=== PATIENT | male | born 1995 | race African-American/Black ===

== ENCOUNTER 2018-03-18 00:33 | Inpatient (IN) | payer OTHER ==
[~2018-03-18] VITALS: Ht 175.3 cm; Wt 102.1 kg
[2018-03-18 03:10] LABS: Basophils # (auto) 0.1 uL; Eosinophils # (auto) 0.1 uL; Lymphocytes # (auto) 1.6 uL; Mean Corpuscular Volume 67.5 fL (80.0-100.0); Nucleated Red Blood Cells % 0.1 %; Red Cell Distribution Width 19.8 % (11.8-14.3)
[2018-03-18 03:12] LABS: Basophils % (auto) 1.5 % (0.0-2.0); Eosinophils % (auto) 1.1 % (0.0-7.0); Hematocrit 31.2 % (41.0-53.0); Hemoglobin 10.1 g/dL (13.5-17.5); Lymphocytes % (auto) 22.1 % (10.0-50.0); Mean Corpuscular Hemoglobin 21.8 pg (28.0-32.0); Mean Corpuscular Hgb Conc. 32.3 g/dL (32.0-36.0); Monocytes # (auto) 0.7 uL; Monocytes % (auto) 9.4 % (0.0-12.0); Neutrophils # (auto) 4.8 uL; Neutrophils % (auto) 65.9 % (37.0-80.0); Platelet Count (auto) 432 10^3/uL (140-450); Red Blood Cells 4.62 10^6/uL (4.5-5.90); White Blood Cell 7.2 10^3/uL (4.4-10.8)
[2018-03-18 03:17] LABS: INR 0.94 (0.9-1.15); Partial Thromboplastin Time 25.9 sec (22.64-33.71); Prothrombin Time 10.2 sec (9.37-12.3)
[2018-03-18 03:33] LABS: Alanine Aminotransferase 37 U/L (16-61); Alkaline Phosphatase 74 U/L (45-117); Anion Gap 10 (5-15); Aspartate Aminotransferase 13 U/L (15-37); BUN/Creatinine Ratio 21.5; Bilirubin, Total 0.4 mg/dL (0.2-1.0); Blood Urea Nitrogen 17 mg/dL (7-18); Calcium 8.5 mg/dL (8.5-10.1); Carbon Dioxide 25 mmol/L (21-32); Chloride 103 mmol/L (98-107); GFR African American 159 mL/min; GFR Non-African American 132 mL/min; Glucose 90 mg/dL (74-106); Potassium 3.6 mmol/L (3.5-5.1); Sodium 138 mmol/L (136-145); Total Protein 7.3 g/dL (6.4-8.2)
[2018-03-18 03:34] LABS: Albumin 3.4 g/dL (3.4-5.0); Amylase 49 U/L (25-115); Lipase 75 U/L (73-393); Magnesium 2.2 mg/dL (1.6-2.6)
[2018-03-18] MEDS ORDERED: MORPHINE SULFATE 4 MG/ML SYR/VIAL IV ONE (05:45)
[2018-03-18] MEDS ORDERED: HYDROcodone-ACET 5/325MG TAB PO PRN (06:30)
[2018-03-18] MEDS ORDERED: MORPHINE SULFATE 4 MG/ML SYR/VIAL IV PRN (06:30)
[2018-03-18] MEDS ORDERED: ACETAMINOPHEN 500 MG TAB PO PRN (06:30)
[2018-03-18] MEDS ORDERED: DEXTROSE (50%) 50ML SYRG IV PRN (08:00)
[2018-03-18 09:15] LABS: Urine Bacteria NONE SEEN /hpf (None Seen); Urine Blood Negative /uL (Negative); Urine Specific Gravity 1.006 (1.001-1.035); Urine WBC <1 /hpf (0 - 3)
[2018-03-18 09:24] LABS: Alcohol, Urine < 3.0 mg/dL (0-5); Amphetamine Screen, Urine NEGATIVE (NEGATIVE); Barbiturate Scree,Urine NEGATIVE (NEGATIVE); Benzodiazephine Screen, Urine POSITIVE (NEGATIVE); Cannabinoid Screen, Urine NEGATIVE (NEGATIVE); Cocaine Screen, Urine NEGATIVE (NEGATIVE); Opiate Scree,Urine POSITIVE (NEGATIVE); Phencyclidine Screen, Urine NEGATIVE (NEGATIVE)
[2018-03-18] MEDS ORDERED: ASPirin-EC 325mg tab PO SCH (10:00)
[2018-03-18] MEDS: PANTOPRAZOLE 40 MG/10 ML VIAL IV SCH ×2 (10:46→23:32)
[2018-03-18] MEDS: CLOPIDOGREL BISULFATE 75 MG TAB PO SCH (10:47)
[2018-03-18] MEDS: CARVEDILOL 3.125 MG TAB PO SCH ×2 (10:47→23:33)
[2018-03-18] MEDS ORDERED: CLOP75TA41 PO (10:58)
[2018-03-18] MEDS ORDERED: PRED1PAK9 PO (10:59)
[2018-03-18] MEDS ORDERED: COLC1CAP PO (10:59)
[2018-03-18] MEDS: MORPHINE SULFATE 4 MG/ML SYR/VIAL IV PRN ×4 (10:59→23:35)
[2018-03-18 11:02] VITALS: BP 121/75
[2018-03-18] MEDS: CYCLOBENZAPRINE HCL 10 MG TAB PO PRN (11:43)
[2018-03-18] MEDS: ACCU-CHEK COMFORT CURVE STRIP VI SCH ×3 (11:48→23:34)
[2018-03-18] MEDS: InsuLIN REG 1unit/0.01ml Soln (100units/ml) SC SCH ×3 (11:53→23:34)
[2018-03-18] MEDS: ALBUTEROL SULF 2.5 MG/0.5ML(0.5%) NEB SOLN NEB SCH ×2 (12:12→19:21)
[2018-03-18 13:01] VITALS: BP 121/75
[2018-03-18] MEDS ORDERED: ASPI325T4 PO (14:14)
[2018-03-18] MEDS ORDERED: DIVA500T59 PO (14:14)
[2018-03-18] MEDS ORDERED: SUCR1TAB PO (14:14)
[2018-03-18] MEDS ORDERED: DIAZ10TA3 PO (14:14)
[2018-03-18] MEDS ORDERED: CYCL5TAB PO (14:14)
[2018-03-18] MEDS ORDERED: PANT40TA2 PO (14:14)
[2018-03-18] MEDS ORDERED: ACETTAB85 PO (14:14)
[2018-03-18] MEDS ORDERED: MORP15TA PO (14:14)
[2018-03-18] MEDS ORDERED: CARV6.2551 PO (14:14)
[2018-03-18] MEDS ORDERED: POLY33504 PO (14:14)
[2018-03-18] MEDS ORDERED: DIPH25CA6 PO (14:14)
[2018-03-18] MEDS ORDERED: DOCU100T15 PO (14:14)
[2018-03-18] MEDS ORDERED: PRE5T PO (14:14)
[2018-03-18] MEDS ORDERED: [UNRECOGNIZED DRUG - CODE] PO (14:14)
[2018-03-18] MEDS ORDERED: ONDA4TAB5 PO (14:14)
[2018-03-18] MEDS ORDERED: FER325T PO (14:14)
[2018-03-18] MEDS ORDERED: METF-370 PO (14:14)
[2018-03-18] MEDS ORDERED: MELO1TAB56 PO (14:14)
[2018-03-18] MEDS ORDERED: ALBU0.08 HHN (14:14)
[2018-03-18] MEDS ORDERED: INSLISPI SC (14:14)
[2018-03-18] MEDS ORDERED: GABA300C10 PO (14:14)
[2018-03-18] MEDS ORDERED: TRAZ50TA2 PO (14:14)
[2018-03-18] MEDS ORDERED: ALBU1AER4 IN (14:14)
[2018-03-18] MEDS ORDERED: OLAN2.5T32 PO (14:14)
[2018-03-18] MEDS: GABAPENTIN 400 MG CAP PO SCH ×2 (15:03→23:34)
[2018-03-18] MEDS: ONDANSETRON HCL 4 MG/2 ML VIAL IV PRN ×3 (15:04→23:35)
[2018-03-18 16:11] LABS: % Iron Saturation 4.5 % (20-55)
[2018-03-18 16:44] VITALS: BP 118/71
[2018-03-18 16:49] VITALS: BP 117/74
[2018-03-18] MEDS ORDERED: SUCRALFATE 1 GM/10 ML ORAL SUSP PO SCH (17:00)
[2018-03-18] MEDS: SUCRALFATE 1 GM TAB PO SCH ×2 (19:06→23:33)
[2018-03-18 22:00] VITALS: BP 127/66
[2018-03-19] MEDS: CYCLOBENZAPRINE HCL 10 MG TAB PO PRN ×3 (00:03→21:35)
[2018-03-19] MEDS: ALBUTEROL SULF 2.5 MG/0.5ML(0.5%) NEB SOLN NEB SCH ×4 (00:22→19:40)
[2018-03-19 05:51] VITALS: BP 135/74
[2018-03-19] MEDS: MORPHINE SULFATE 4 MG/ML SYR/VIAL IV PRN ×4 (06:11→20:41)
[2018-03-19] MEDS: GABAPENTIN 400 MG CAP PO SCH ×3 (06:11→21:33)
[2018-03-19] MEDS: ONDANSETRON HCL 4 MG/2 ML VIAL IV PRN ×4 (06:11→20:42)
[2018-03-19] MEDS: InsuLIN REG 1unit/0.01ml Soln (100units/ml) SC SCH ×4 (07:00→22:24)
[2018-03-19] MEDS: ACCU-CHEK COMFORT CURVE STRIP VI SCH ×4 (07:02→21:35)
[2018-03-19] MEDS: SUCRALFATE 1 GM TAB PO SCH ×4 (07:03→21:32)
[2018-03-19 08:00] VITALS: BP 155/64
[2018-03-19] MEDS: NITROGLYCERIN 0.4 MG SL TAB SL PRN ×3 (08:43→08:59)
[2018-03-19 09:00] VITALS: BP 155/64
[2018-03-19] MEDS ORDERED: KETOROLAC TROMETH 30 MG/ML 1ML VIAL IV ONE (09:15)
[2018-03-19] MEDS: ASPirin-EC 81 mg tab PO SCH (09:29)
[2018-03-19] MEDS ORDERED: KETOROLAC TROMETH 30 MG/ML 1ML VIAL IV PRN (09:45)
[2018-03-19] MEDS: CARVEDILOL 3.125 MG TAB PO SCH ×2 (10:50→21:34)
[2018-03-19] MEDS: CLOPIDOGREL BISULFATE 75 MG TAB PO SCH (10:50)
[2018-03-19] MEDS: PANTOPRAZOLE 40 MG TAB PO SCH ×2 (12:03→21:34)
[2018-03-19] MEDS: SODIUM FERR GLUC 62.5MG/5ML 125 MG in SODIUM CHL 0.9% 100 ML IV SCH (12:55)
[2018-03-19 13:00] VITALS: BP 129/68
[2018-03-19 17:00] VITALS: BP 123/80
[2018-03-19 22:00] VITALS: BP 107/73
[2018-03-20] MEDS: ALBUTEROL SULF 2.5 MG/0.5ML(0.5%) NEB SOLN NEB SCH ×4 (00:59→19:18)
[2018-03-20] MEDS: MORPHINE SULFATE 4 MG/ML SYR/VIAL IV PRN ×5 (01:08→20:47)
[2018-03-20] MEDS: ONDANSETRON HCL 4 MG/2 ML VIAL IV PRN ×5 (01:08→20:47)
[2018-03-20] MEDS: CYCLOBENZAPRINE HCL 10 MG TAB PO PRN ×3 (05:52→22:19)
[2018-03-20] MEDS: GABAPENTIN 400 MG CAP PO SCH ×3 (06:00→22:18)
[2018-03-20] MEDS: SUCRALFATE 1 GM TAB PO SCH ×4 (06:11→22:18)
[2018-03-20] MEDS: InsuLIN REG 1unit/0.01ml Soln (100units/ml) SC SCH ×4 (07:00→22:00)
[2018-03-20] MEDS: ACCU-CHEK COMFORT CURVE STRIP VI SCH ×4 (07:06→22:19)
[2018-03-20 09:00] VITALS: BP 133/75
[2018-03-20] MEDS ORDERED: LORazepam 2MG/ML-1ML VIAL IV ONE (09:15)
[2018-03-20] MEDS: PANTOPRAZOLE 40 MG TAB PO SCH ×2 (09:41→22:18)
[2018-03-20] MEDS: ASPirin-EC 81 mg tab PO SCH (09:42)
[2018-03-20] MEDS: CLOPIDOGREL BISULFATE 75 MG TAB PO SCH (09:42)
[2018-03-20] MEDS: CARVEDILOL 3.125 MG TAB PO SCH ×2 (09:45→22:18)
[2018-03-20 09:50] VITALS: BP 133/75
[2018-03-20] MEDS ORDERED: ADENOSINE 86 MG in GIVE UN-DILUTED 0 ML IV ONE (12:15)
[2018-03-20] MEDS ORDERED: AMINOPHYLLINE 250 MG/10 ML VL IV ONE (13:15)
[2018-03-20] MEDS ORDERED: ALBUTEROL SULF 2.5 MG/0.5ML(0.5%) NEB SOLN ONE (13:33)
[2018-03-20] MEDS ORDERED: IPRATROPIUM BROM 0.5 MG/2.5ML INH SOL ONE (13:33)
[2018-03-20 13:35] VITALS: BP 109/71
[2018-03-20] MEDS: SODIUM FERR GLUC 62.5MG/5ML 125 MG in SODIUM CHL 0.9% 100 ML IV SCH (15:04)
[2018-03-20 18:18] VITALS: BP 111/78
[2018-03-20 20:00] VITALS: BP 117/69
[2018-03-20 22:38] VITALS: BP 117/69
[2018-03-20] MEDS: RANOLAZINE ER 500 MG TAB PO SCH (22:43)
[2018-03-21] MEDS: ALBUTEROL SULF 2.5 MG/0.5ML(0.5%) NEB SOLN NEB SCH ×2 (00:23→07:27)
[2018-03-21] MEDS: ONDANSETRON HCL 4 MG/2 ML VIAL IV PRN ×3 (00:50→09:13)
[2018-03-21] MEDS: MORPHINE SULFATE 4 MG/ML SYR/VIAL IV PRN ×3 (00:50→09:14)
[2018-03-21 05:25] VITALS: BP 99/57
[2018-03-21] MEDS: SUCRALFATE 1 GM TAB PO SCH (06:50)
[2018-03-21] MEDS: ACCU-CHEK COMFORT CURVE STRIP VI SCH (06:50)
[2018-03-21] MEDS: GABAPENTIN 400 MG CAP PO SCH (06:50)
[2018-03-21] MEDS: InsuLIN REG 1unit/0.01ml Soln (100units/ml) SC SCH (06:50)
[2018-03-21 08:00] VITALS: BP 104/68
[2018-03-21 09:00] VITALS: BP 151/88
[2018-03-21] MEDS: PANTOPRAZOLE 40 MG TAB PO SCH (09:14)
[2018-03-21] MEDS: CARVEDILOL 3.125 MG TAB PO SCH (09:15)
[2018-03-21] MEDS: CYCLOBENZAPRINE HCL 10 MG TAB PO PRN (09:15)
[2018-03-21] MEDS: ASPirin-EC 81 mg tab PO SCH (09:15)
[2018-03-21] MEDS: CLOPIDOGREL BISULFATE 75 MG TAB PO SCH (09:15)
[2018-03-21] MEDS: RANOLAZINE ER 500 MG TAB PO SCH (09:21)
== END 2018-03-21 10:35 | disposition home or self-care (01) | DRG 198 ==
LOC: EDBD 00:33 → ER 00:41 → TELE 00:42 → TELE-WESTW 10:07
PROVIDERS: ADMIT Nurse Practitioner Family; ATTEND Internal Medicine
DX: R07.89 Other chest pain (principal); I25.2 Old myocardial infarction; I31.9 Disease of pericardium, unspecified; I42.9 Cardiomyopathy, unspecified; I11.0 Hypertensive heart disease with heart failure; I50.9 Heart failure, unspecified; E66.01 Morbid (severe) obesity due to excess calories; I25.119 Atherosclerotic heart disease of native coronary artery with unspecified angina pectoris; E11.40 Type 2 diabetes mellitus with diabetic neuropathy, unspecified; G89.29 Other chronic pain; K27.9 Peptic ulcer, site unspecified, unspecified as acute or chronic, without hemorrhage or perforation; K21.9 Gastro-esophageal reflux disease without esophagitis; D50.9 Iron deficiency anemia, unspecified; E78.5 Hyperlipidemia, unspecified; F41.9 Anxiety disorder, unspecified; I48.91 Unspecified atrial fibrillation; J45.909 Unspecified asthma, uncomplicated; M06.9 Rheumatoid arthritis, unspecified; M79.7 Fibromyalgia; M10.9 Gout, unspecified; Z79.4 Long term (current) use of insulin; Z82.49 Family history of ischemic heart disease and other diseases of the circulatory system; Z86.718 Personal history of other venous thrombosis and embolism; Z95.5 Presence of coronary angioplasty implant and graft; Z86.711 Personal history of pulmonary embolism; Z87.11 Personal history of peptic ulcer disease; Z68.33 Body mass index [BMI] 33.0-33.9, adult
CPT/HCPCS: 36415; 70547; 71045; 74176; 80053; 80307; 81001; 82150; 82270; 82728; 82962; 83036; 83540; 83550; 83690; 83735; 83880; 84443; 84484; 85025; 85379; 85610; 85730; 86850; 86900; 86901; 93005; 93017; 93306; 93886; 94640; 94761; 96374; 96375; C9113; J0153; J1815; J1885; J2405